=== PATIENT | female | born 1995 | race Caucasian/White ===

== ENCOUNTER 2017-05-24 02:23 | Emergency (ER) | payer OTHER ==
[~2017-05-24] VITALS: Ht 154.9 cm; Wt 48.0 kg
[2017-05-24 02:24] VITALS: BP 114/59; PULSE 92; RESP 16; TEMP 97.8; O2SAT 99
[2017-05-24 03:54] VITALS: BP_SYST 105; BP_SYST 114; BP_SYST 116; BP_DIAS 63; BP_DIAS 69; RESP 16
[2017-05-24 04:04] LABS: BACTERIA, URINE MOD /hpf; BLOOD, URINE SMALL (NEG); COMMENT (UR) CULTURE INDICATED; CULTURE IF INDICATED CULTURE INDICATED; GLUCOSE,URINE NEG (NEG); KETONE, URINE 40 mg/dL (NEG); MUCUS URINE FEW /lpf (OCC); NITRITE,URINE POS (NEG); PH, URINE 5.5 (5.0-8.5); SQUAMOUS EPITHELIAL CELL URINE 3 /hpf (0-5); URINE COLOR LIGHT-YELLOW (YELLW/STRAW)
--- NOTE | 2017-05-24 04:26 | PD ---
HPI Chief Complaint: Syncope/Near-Syncope Time Seen by Provider: 03:26 Travel History International Travel<30 days: No Contact w/Intl Traveler<30days: No Traveled to known affect area: No History of Present Illness HPI pt had her wisdom teeth out 36 hrs ago and was taking motrin, last night took motrin and applied warm clothes to her jaw and neck then she syncopized fell towards the ground was held up by parents then awoken stood and went limp again PFS Past Medical History Medical History: Denies Significant Hx Tetanus Vaccination: > 5 Years ?: Not LMP: 04/26/17 Past Surgical History Surgical History: No Previous Surgery Social History Alcohol Use: No Tobacco Use: No Substance Use: No Allergies-Medications (Allergen,Severity, Reaction): Coded Allergies: No Known Allergies (Unverified , 05/24/17) Review of Systems Except as stated in HPI: all other systems reviewed are Neg Neurologic: Positive: Syncope Physical Exam Narrative GENERAL: aox3 non toxic mild swelling to jaw mandible bilateral SKIN: Warm and dry. HEAD: Atraumatic. Normocephalic. EYES: Pupils equal and round. No scleral icterus. No injection or drainage. ENT: No nasal bleeding or discharge. Mucous membranes pink and moist. NECK: Trachea midline. No JVD. CARDIOVASCULAR: Regular rate and rhythm. RESPIRATORY: No accessory muscle use. Clear to auscultation. Breath sounds equal bilaterally. GASTROINTESTINAL: Abdomen soft, non-tender, nondistended. Hepatic and splenic margins not palpable. MUSCULOSKELETAL: Extremities without clubbing, cyanosis, or edema. No obvious deformities. NEUROLOGICAL: Awake and alert. No obvious cranial nerve deficits. Motor grossly within normal limits. Five out of 5 muscle strength in the arms and legs. Normal speech. PSYCHIATRIC: Appropriate mood and affect; insight and judgment normal. swollen cheecks and parotid area no long bone nor other injury ENT no bleeding from posterior pharynx Data Data Last Documented VS Vital Signs Date Time Temp Pulse Resp B/P (MAP) Pulse Ox O2 Delivery O2 Flow Rate FiO2 05/24/17 04:54 05/24/17 03:54 93 16 97 16 93 16 05/24/17 02:24 97.8 99 Room Air Orders Orders Orthostatic Vital Signs (05/24/17 03:26) Urinalysis - C+S If Indicated (05/24/17 03:26) Urine Culture (05/24/17 03:45) Ed Discharge Order (05/24/17 04:42) Labs Laboratory Tests Test 05/24/17 03:45 Urine Color LIGHT-YELLOW Urine Turbidity HAZY Urine pH 5.5 Urine Specific [place] 1.008 Urine Protein NEG mg/dL Urine Glucose (UA) NEG mg/dL Urine Ketones 40 mg/dL Urine Occult Blood SMALL Urine Nitrite POS Urine Bilirubin NEG Urine Urobilinogen LESS THAN 2.0 MG/DL Urine Leukocyte Esterase LARGE Urine RBC 3 /hpf Urine WBC 50 /hpf Urine WBC Clumps FEW Urine Squamous Epithelial Cells 3 /hpf Urine Bacteria MOD /hpf Urine Mucus FEW /lpf Microscopic Urinalysis Comment CULTURE INDICATED MDM Medical Decision Making Medical Screen Exam Complete: Yes Emergency Medical Condition: Yes Differential Diagnosis vasovagal syncope vs carotid message reaction from warm compress to neck then cold water to take pill , sinus horacio stimulation Narrative Course ORTHOSTATICS were normal no dizziness and no change in SBP and HR from standing to sitting to laying Diagnosis Primary Impression: Vaso vagal episode Additional Impression: Syncope and collapse Patient Instructions: General Instructions, Syncope (ED) Disposition: 01 DISCHARGE HOME Saurav Spencer MD May 24, 2017 04:26
== END 2017-05-24 04:55 | disposition home or self-care (01) ==
LOC: NEPC 02:23
DX: R55 Syncope and collapse (principal); B96.20 Unspecified Escherichia coli [E. coli] as the cause of diseases classified elsewhere
CPT/HCPCS: 81001; 87077; 87086; 87186; 99283